=== PATIENT | male | born 1960 | race African-American/Black ===

== ENCOUNTER 2018-12-05 05:52 | Day surgery (SDC) | payer OTHER ==
[2018-11-28 09:05] LABS: ANION GAP 10 (5-19); BLOOD UREA NITROGEN 17 mg/dL (7-20); CALCIUM 9.2 mg/dL (8.4-10.2); CARBON DIOXIDE 29 mmol/L (22-30); CHLORIDE 104 mmol/L (98-107); GLUCOSE 207 mg/dL (75-110); POTASSIUM 4.5 mmol/L (3.6-5.0)
[2018-12-05] MEDS ORDERED: PROPOFOL INJ 200 MG/20 ML VIAL IV ONE (06:13)
[2018-12-05] MEDS ORDERED: MIDAZOLAM 2 MG/2 ML INJ ONE (06:13)
[2018-12-05] MEDS ORDERED: DIPHENHYDRAMINE HCL 50 MG/ML VIAL IV PRN (07:38)
[2018-12-05] MEDS ORDERED: ONDANSETRON HCL INJ/PF 4 MG/2 ML SDV IV PRN (07:38)
[2018-12-05] MEDS ORDERED: FENTANYL CITRATE INJ/PF 100 MCG/2 ML AMPUL IV PRN ×3 (07:38)
[2018-12-05] MEDS ORDERED: MORPHINE SULFATE 10 MG/ML INJ IV PRN (07:38)
[2018-12-05] MEDS ORDERED: MEPERIDINE HCL/PF INJ 25 MG/1 ML DISP.SYRIN IV PRN (07:38)
[2018-12-05] MEDS ORDERED: PROMETHAZINE HCL INJ 25 MG/1 ML VIAL IV PRN ×2 (07:38)
--- NOTE | 2018-12-05 08:59 | Discharge Summary ---
Discharge Summary (SDC) - Discharge Final Diagnosis: Normal screening colonoscopy, history of colon cancer Date of Surgery: 12/05/18 Discharge Date: 12/05/18 Condition: Stable Treatment or Instructions: Discharge home. Diet as tolerated. Activity: Nonstrenuous. Follow-up with me in 7 to 10 days. Fiber supplement twice daily. Referrals: OSCAR COLIN MD [Primary Care Provider] - Discharge Diet: As Tolerated Respiratory Treatments at Home: Deep Breathing/Coughing, Incentive Spirometer Discharge Activity: Activity As Tolerated Home Care Assistance: None Needed Report the Following to Your Physician Immediately: Shortness of Breath, Nausea, Vomiting, Increase in Pain, Fever over 101 Degrees, Unusual Bleeding, Swelling
--- NOTE | 2018-12-05 09:02 | Operative Report ---
Nonrecallable Operative Report DATE OF SURGERY: 12/05/18 PREOPERATIVE DIAGNOSIS: History of colon cancer POSTOPERATIVE DIAGNOSIS: 1. History of colon cancer. 2. Normal screening colonoscopy. OPERATION: Colonoscopy to the cecum. SURGEON: HAMMAD PAZ ANESTHESIA: LMAC TISSUE REMOVED OR ALTERED: None COMPLICATIONS: None apparent ESTIMATED BLOOD LOSS: None PROCEDURE: Procedure in detail: After informed consent was obtained, the patient was brought to the operating room and laid in the left lateral decubitus position. The endoscope was inserted into the rectum. It was passed up the rectum, sigmoid colon, descending colon, across the transverse colon, down the ascending colon, and into the cecum. The ileocecal valve and appendiceal orifice were identified. The scope was then withdrawn, circumferentially noting the mucosa. The prep was fair. There was a large amount of liquid stool retained in the co jaxon. This was irrigated and suctioned. The colonic mucosa was adequately surveyed after irrigation and suctioning. The scope was pulled back past the ascending colon, transverse colon, down the descending colon. At approximately 20 cm there was found to be a circumferential anastomosis present. The anastomosis was in good order, without signs of adenomatous tissue. The scope was then withdrawn down into the rectum. A retroflexion maneuver was performed noting no significant internal hemorrhoids. The scope was straightened, air was suctioned from the rectum, the scope was removed and the procedure was concluded. Please note there were no masses, lesions, polyps, tumors, ulcerations, or areas of bleeding throughout the colon. Once the scope was removed, the procedure was concluded. All sponge, instrument, and needle counts were correct. Condition: Stable. Recommendation: Repeat colonoscopy in 1 year due to history of recent colon cancer.
--- NOTE | 2018-12-05 10:47 | EKG REPORT ---
SEVERITY:- OTHERWISE NORMAL ECG - SINUS RHYTHM BORDERLINE LEFT AXIS DEVIATION : Confirmed by: Edie Neal MD 05-Dec-2018 10:47:08
[2018-12-05 12:22] VITALS: BP 119/71
== END 2018-12-05 09:50 | disposition home or self-care (01) ==
LOC: END 05:52
PROVIDERS: ATTEND Surgery
PROC: 0DJD8ZZ Inspection of Lower Intestinal Tract, Via Natural or Artificial Opening Endoscopic (ICD-10-PCS; principal; 2018-12-05 08:00)
DX: Z12.11 Encounter for screening for malignant neoplasm of colon (principal); Z85.038 Personal history of other malignant neoplasm of large intestine; E11.9 Type 2 diabetes mellitus without complications; I10 Essential (primary) hypertension; M19.90 Unspecified osteoarthritis, unspecified site; Z88.0 Allergy status to penicillin; Z79.4 Long term (current) use of insulin; Z79.899 Other long term (current) drug therapy
CPT/HCPCS: 45378; 36415 ×2; 82962; 84132; 80048; 93005; 93010; 00811; J2250; J2704; 811

== ENCOUNTER 2019-03-12 14:05 | Emergency (ER) | payer OTHER ==
--- NOTE | 2019-03-12 15:21 | ER Document Report ---
ED Medical Screen (RME) - General Chief Complaint: Dizziness Stated Complaint: DIZZINESS Time Seen by Provider: 03/12/19 14:50 Primary Care Provider: OSCAR COLIN MD [Primary Care Provider] - Follow up as needed Notes: 4-year-old male with hypertension and insulin pinna diabetes mellitus presents to the emergency department with chief complaint of vertigo and dizziness for the last 1.5 weeks. Patient states it started about a week and a half ago with vertigo with a sensation of the room spinning around him and that lasted for a couple of days and then subsided. Then this past Tuesday he was in his garage and got acutely dizzy and fell and struck his head on a refrigerator door. Patient states that his dizziness is gotten worse and his is concerned that ever since the fall and striking his head that his symptoms have gotten since progressively worse. Patient denies any diplopia but does complain of intermittent blurred vision, denies any palpitations, denies acute shortness of breath or chest pain, denies abdominal pain, patient is not on anticoagulation. Exam: NEURO: A &O X 3, normal speech, normal gait, PERRL, EOMI, SILT, follows commands in all 4 extremities, no gross abnormalities of cranial nerves, no focal neuro deficits, no pronator drift, [id number] testing normal, rapid alternating hand movements normal, [id number] normal, womens health nurse practitioner strength 5/5 bilateral, 5/5 strength in both proximal and distal upper and lower extremities I have greeted and performed a rapid initial assessment of this patient. A comprehensive ED assessment and evaluation of the patient, analysis of test results and completion of medical decision making process will be conducted by an additional ED providers. TRAVEL OUTSIDE OF THE [place] IN LAST 30 DAYS: No - Related Data Allergies/Adverse Reactions: Penicillins Adverse Reaction (Verified 11/28/18 08:34) Past Medical History - Social History Frequency of alcohol use: None Drug Abuse: None - Past Medical History Cardiac Medical History: Reports: Hx Hypertension Denies: Hx Coronary Artery Disease, Hx Heart Attack Pulmonary Medical History: Denies: Hx Asthma, Hx Bronchitis, Hx COPD, Hx Pneumonia Neurological Medical History: Denies: Hx Cerebrovascular Accident, Hx Seizures Musculoskeltal Medical History: Reports Hx Arthritis - ANGELO HIPS/KNEES - Immunizations Hx Diphtheria, Pertussis, Tetanus Vaccination: Yes Physical Exam - Vital signs Vitals: Temp Pulse Resp BP Pulse Ox 97.9 F 80 17 153/81 H 98 03/12/19 14:19 03/12/19 14:19 03/12/19 14:19 03/12/19 14:19 03/12/19 14:19 Course - Vital Signs Vital signs: Temp Pulse Resp BP Pulse Ox 97.9 F 80 17 153/81 H 98 03/12/19 14:19 03/12/19 14:19 03/12/19 14:19 03/12/19 14:19 03/12/19 14:19 Doctor's Discharge - Discharge Referrals: OSCAR COLIN MD [Primary Care Provider] - Follow up as needed
--- NOTE | 2019-03-12 16:04 | RADIOLOGY REPORT (SQ) ---
EXAM DESCRIPTION: CT HEAD WITHOUT COMPLETED DATE/TIME: 03/12/2019 3:52 pm REASON FOR STUDY: fall COMPARISON: None. TECHNIQUE: Axial images acquired through the brain without intravenous contrast. Images reviewed wi th bone, brain and subdural windows. Additional sagittal and coronal reconstructions were generated. Images stored on PACS. All CT scanners at this facility use dose modulation, iterative reconstruction, and/or weight based d osing when appropriate to reduce radiation dose to as low as reasonably achievable (ALARA). [facility]: Dose Right [facility]: CareDose [facility]: Dose Right [facility]: Teradose 4D [facility]: Kloudco RADIATION DOSE: CT Rad equipment meets quality standard of care and radiation dose reduction techniq ues were employed. CTDIvol: 53.2 mGy. DLP: 1017 mGy-cm. mGy. LIMITATIONS: None. FINDINGS: VENTRICLES: Normal size and contour. CEREBRUM: No masses. No hemorrhage. No midline shift. No evidence for acute infarction. Normal gra y/white matter differentiation. No areas of low density in the white matter. CEREBELLUM: No masses. No hemorrhage. No alteration of density. No evidence for acute infarction. EXTRAAXIAL SPACES: No fluid collections. No masses. ORBITS AND GLOBE: No intra- or extraconal masses. Normal contour of globe without masses. CALVARIUM: No fracture. PARANASAL SINUSES: No fluid or mucosal thickening. SOFT TISSUES: No mass or hematoma. OTHER: No other significant finding. IMPRESSION: No acute intracranial pathology. EVIDENCE OF ACUTE STROKE: NO. COMMENT: Quality ID # [id number]: Final reports with documentation of one or more dose reduction techniques (e.g., Automated exposure control, adjustment of the mA and/or kV according to patient size, use of iterative reconstruction technique) TECHNICAL DOCUMENTATION: JOB ID: [id number] [employer]- All Rights Reserved Reading location - IP/workstation name: [id number]
[2019-03-12 16:17] LABS: ABSOLUTE EOSINOPHILS # (AUTO) 0.1 10^3/uL (0.0-0.6); ABSOLUTE LYMPHOCYTES (AUTO) 1.6 10^3/uL (0.5-4.7); ABSOLUTE MONOCYTES (AUTO) 0.5 10^3/uL (0.1-1.4); BASOPHILS % (AUTO) 0.1 % (0-2); EOSINOPHILS % (AUTO) 2.8 % (0-6); HEMOGLOBIN 12.8 g/dL (13.5-17.0); LYMPHOCYTES % (AUTO) 38.8 % (13-45); MEAN CORPUSCULAR HEMOGLOBIN 22.8 pg (27.0-33.4); MEAN CORPUSCULAR HGB CONC 32.1 g/dL (32.0-36.0); MEAN CORPUSCULAR VOLUME 71 fl (80-97); PLATELET COUNT 237 10^3/uL (150-450); RED BLOOD COUNT 5.62 10^6/uL (4.35-5.55); RED CELL DISTRIBUTION WIDTH 14.5 % (11.5-14.0); SEGMENTED NEUTROPHILS % (AUTO) 47.3 % (42-78); TOTAL CELLS COUNTED % (AUTO) 100 %; WHITE BLOOD COUNT 4.2 10^3/uL (4.0-10.5)
[2019-03-12 16:20] LABS: APPEARANCE,URINE SLIGHTLY-CLOUDY; BILIRUBIN,URINE NEGATIVE (NEGATIVE); COLOR,URINE YELLOW; GLUCOSE, URINE >=500 mg/dL (NEGATIVE); KETONES,URINE TRACE mg/dL (NEGATIVE); LEUKOCYTE ESTERASE,URINE NEGATIVE (NEGATIVE); NITRITE,URINE NEGATIVE (NEGATIVE); PROTEIN,URINE 30 mg/dL (NEGATIVE); URINE SPECIFIC GRAVITY 1.027
[2019-03-12 16:31] LABS: ALBUMIN 4.5 g/dL (3.5-5.0); ALKALINE PHOSPHATASE 181 U/L (38-126); ANION GAP 9 (5-19); ASPARTATE AMINO TRANSFERASE 53 U/L (17-59); BILIRUBIN,DIRECT 0.1 mg/dL (0.0-0.4); BILIRUBIN,TOTAL 0.5 mg/dL (0.2-1.3); BLOOD UREA NITROGEN 18 mg/dL (7-20); CALCIUM 9.5 mg/dL (8.4-10.2); CARBON DIOXIDE 30 mmol/L (22-30); CHLORIDE 100 mmol/L (98-107); GLUCOSE 223 mg/dL (75-110); POTASSIUM 4.9 mmol/L (3.6-5.0); TOTAL PROTEIN 8.2 g/dL (6.3-8.2)
--- NOTE | 2019-03-12 17:08 | ER Document Report ---
ED General - General Chief Complaint: Dizziness Stated Complaint: DIZZINESS Time Seen by Provider: 03/12/19 14:50 Primary Care Provider: OSCAR COLIN MD [Primary Care Provider] - Follow up as needed TRAVEL OUTSIDE OF THE [place] IN LAST 30 DAYS: No - HPI Notes: Patient is a 58-year-old male who presents to the emergency department for evaluation of dizziness and difficulty walking. He states that last week he noted the room spinning, particularly when he laid down flat. He states it was so bad that he actually slept propped up on several pillows. The symptoms seem to improve. He states the next day he fell, striking the top of his head on a refrigerator. He denies loss of consciousness. He is unsure as to why he fell exactly, but does not relate any chest pain or difficulty breathing that precipitated it. He states that over the last 24 hours, he has developed significant difficulty walking. He does have known "balance issues." After an extensive work-up at [facility], it was noted to him that it was likely all secondary to his neuropathy. The patient states normally he can walk for some time without requiring any sort of assistance. He states now he needs to lean on something to keep him from falling to the ground. He denies any pain of any so rt. No visual changes. No other medication changes or acute issues. - Related Data Allergies/Adverse Reactions: Penicillins Adverse Reaction (Verified 11/28/18 08:34) Home Medications: Lantus, NovoLog, Mobic, Crestor, Voltaren gel Past Medical History - General Information source: Patient, Relative - Social History Smoking Status: Never Smoker Frequency of alcohol use: None Drug Abuse: None Family History: Reviewed & Not Pertinent Patient has suicidal ideation: No Patient has homicidal ideation: No - Past Medical History Cardiac Medical History: Reports: Hx Hypercholesterolemia, Hx Hypertension Denies: Hx Coronary Artery Disease, Hx Heart Attack Pulmonary Medical History: Denies: Hx Asthma, Hx Bronchitis, Hx COPD, Hx Pneumonia Neurological Medical History: Denies: Hx Cerebrovascular Accident, Hx Seizures Endocrine Medical History: Reports: Hx Diabetes Mellitus Type 2 - With neuropathy Musculoskeletal Medical History: Reports Hx Arthritis - ANGELO HIPS/KNEES - Immunizations Hx Diphtheria, Pertussis, Tetanus Vaccination: Yes Review of Systems - Review of Systems Constitutional: No symptoms reported EENT: See HPI Cardiovascular: No symptoms reported Respiratory: No symptoms reported Gastrointestinal: No symptoms reported Genitourinary: No symptoms reported Musculoskeletal: No symptoms reported Skin: No symptoms reported Neurological/Psychological: No symptoms reported Physical Exam - Vital signs Vitals: Temp Pulse Resp BP Pulse Ox 97.9 F 80 17 153/81 H 98 03/12/19 14:19 03/12/19 14:19 03/12/19 14:19 03/12/19 14:19 03/12/19 14:19 - Notes Notes: Vital signs reviewed, please refer to chart. Head is normocephalic, atraumatic. Pupils equal round, reactive to light. Right TM is pearly lr with good light reflex. Left TM is obscured by cerumen. Neck is supple without meningismus. Heart is regular rate and rhythm. Lungs are clear to auscultation bilaterally. Abdomen is soft, nontender, normoactive bowel sounds throughout. Extremities without cyanosis, clubbing. Posterior calves are nontender. Peripheral pulses are equal. Skin is warm and dry. Patient is awake, alert, oriented x3. Cranial nerves II - XII are grossly intact without focal neurological deficits. Strength is plus 4 out of 5 bilateral upper and lower extremities. Sensation is intact. Reflexes symmetrical. Intact zgcxdj-lazq-[id number] and rapid alternating movements. Patient had some difficulty and dysmetria with qncg-[id number]. Gait is observed and found to be broad-based and unsteady. Course - Re-evaluation Re-evalutation: 03/12/19 17:09 Patient presents emergency department for evaluation. His vertigo was improved, but he is very unsteady. Certainly this could be his neuropathy, but according to and the patient there is a significant worsening. Some of his symptoms are positional, so orthostatics were ordered. We will get an order an MRI, a CT scan of the head was unremarkable. We will continue to monitor. 03/12/19 19:45 Patient has high stents, he does not have any of the paperwork regarding this. MRI could not proceed without paperwork in regards to the current position of the stents. The patient states that this point he would like to leave AGAINST MEDICAL ADVICE. He voiced understanding to the fact that I do not have a clear etiology for his significant ataxia and vertigo. I am concerned of a central etiology for these symptoms. He voiced understanding, but still wishes to leave AGAINST MEDICAL ADVICE. He understands that he can return at any time should he change his mind. - Vital Signs Vital signs: Temp Pulse Resp BP Pulse Ox 97.9 F 70 17 148/79 H 98 03/12/19 14:19 03/12/19 18:50 03/12/19 14:19 03/12/19 18:50 03/12/19 14:19 - Laboratory Result Diagrams: 03/12/19 15:27 03/12/19 15:27 Laboratory results interpreted by me: 03/12/19 03/12/19 03/12/19 15:27 15:27 15:30 RBC 5.62 H Hgb 12.8 L MCV 71 L MCH 22.8 L RDW 14.5 H Glucose 223 H Alkaline Phosphatase 181 H Urine Protein 30 H Urine Glucose (UA) >=500 H Urine Ketones TRACE H Urine Urobilinogen 4.0 H Urine Ascorbic Acid 20 H - Diagnostic Test Radiology reviewed: Reports reviewed Radiology results interpreted by me: 03/12/19 17:[address] 03/12/19 15:21 IMPRESSION: No acute intracranial pathology. EVIDENCE OF ACUTE STROKE: NO. - EKG Interpretation by Me Additional EKG results interpreted by me: 03/12/19 19:46 Sinus mechanism with a rate of 71 bpm. Left axis deviation. Nonspecific ST changes, but no acute changes concerning for ischemia or infarction Discharge - Discharge Clinical Impression: Ataxia, Vertigo Condition: Stable Disposition: HOME, SELF-CARE Instructions: Vertigo (OM) Additional Instructions: No clear cause was found for your dizziness and gait difficulties tonight. You have elected to leave AGAINST MEDICAL ADVICE. Please understand you can return at any time if you change your mind regarding further evaluation. Follow-up as closely as possible with your primary care provider. Return to the ED with worsening or new concerning symptoms of any sort. Referrals: OSCAR COLIN MD [Primary Care Provider] - Follow up as needed
[2019-03-12 20:03] VITALS: BP 150/84
== END 2019-03-12 20:08 | disposition home or self-care (01) ==
LOC: ER 14:05
DX: R42 Dizziness and giddiness (principal); W22.8XXA Striking against or struck by other objects, initial encounter; E11.40 Type 2 diabetes mellitus with diabetic neuropathy, unspecified; Z79.4 Long term (current) use of insulin; I10 Essential (primary) hypertension
CPT/HCPCS: 36415; 70450; 80053; 81001; 83735; 84484; 85025; 99284

== ENCOUNTER 2019-11-20 22:17 | Emergency (ER) | payer OTHER ==
[2019-11-20 22:49] LABS: ABSOLUTE EOSINOPHILS # (AUTO) 0.1 10^3/uL (0.0-0.6); ABSOLUTE LYMPHOCYTES (AUTO) 2.8 10^3/uL (0.5-4.7); ABSOLUTE MONOCYTES (AUTO) 0.5 10^3/uL (0.1-1.4); ABSOLUTE NEUT (AUTO) 1.4 10^3/uL (1.7-8.2); EOSINOPHILS % (AUTO) 2.5 % (0-6); HEMATOCRIT 39.4 % (37.9-51.0); HEMOGLOBIN 12.7 g/dL (13.5-17.0); LYMPHOCYTES % (AUTO) 59.1 % (13-45); MEAN CORPUSCULAR HEMOGLOBIN 22.8 pg (27.0-33.4); MEAN CORPUSCULAR HGB CONC 32.3 g/dL (32.0-36.0); MEAN CORPUSCULAR VOLUME 71 fl (80-97); MONOCYTES % (AUTO) 9.9 % (3-13); PLATELET COUNT 235 10^3/uL (150-450); RED BLOOD COUNT 5.58 10^6/uL (4.35-5.55); RED CELL DISTRIBUTION WIDTH 14.7 % (11.5-14.0); SEGMENTED NEUTROPHILS % (AUTO) 28.5 % (42-78); TOTAL CELLS COUNTED % (AUTO) 100 %; WHITE BLOOD COUNT 4.8 10^3/uL (4.0-10.5)
[2019-11-20 23:10] LABS: ALBUMIN 4.3 g/dL (3.5-5.0); ALKALINE PHOSPHATASE 152 U/L (38-126); ANION GAP 10 (5-19); ASPARTATE AMINO TRANSFERASE 41 U/L (17-59); BILIRUBIN,TOTAL 0.4 mg/dL (0.2-1.3); BLOOD UREA NITROGEN 14 mg/dL (7-20); CALCIUM 9.4 mg/dL (8.4-10.2); CARBON DIOXIDE 27 mmol/L (22-30); CHLORIDE 100 mmol/L (98-107); GLUCOSE 153 mg/dL (75-110); POTASSIUM 4.3 mmol/L (3.6-5.0)
--- NOTE | 2019-11-20 23:12 | ER Document Report ---
ED General - General Chief Complaint: General Weakness Stated Complaint: WEAKNESS Time Seen by Provider: 11/20/19 22:57 Primary Care Provider: OSCAR COLIN MD [Primary Care Provider] - Follow up tomorrow Notes: Patient is a 59-year-old male that comes to the emergency department for chief complaint of an episode prior to arrival blood he felt "strange and weak", he states that he felt like his blood sugar was dropping, he checked and it was 84, he states that he started feeling his heart was starting to race as well. He states that suddenly when he stood up he had trouble moving his right leg although he denies tingling or numbness in the leg. He states this did resolve within an hour (the strange sensation and palpitations resolved, the right leg weakness resolved). Symptoms started about 2 hours prior to arrival. He comes by EMS. He denies headache, chest pain, abdominal pain. He does state that for the past 1.5 weeks he has had frequent vomiting and bad reflux, he states he was just [facility] and [facility] for this. He also has a history of hypertension and type 1 insulin-dependent diabetes. He states he has also been unsteady on his feet at baseline for the past couple of months although this is not definitely certain why. He denies smoking, alcohol, recreational drugs. He lives at home with his . TRAVEL OUTSIDE OF THE [place] IN LAST 30 DAYS: No - Related Data Allergies/Adverse Reactions: Penicillins Adverse Reaction (Verified 11/20/19 22:34) Home Medications: Reglan, HCTZ, Losartan, Vit D3 Past Medical History - General Information source: Patient - Social History Smoking Status: Never Smoker Frequency of alcohol use: None Lives with: Family Family History: Reviewed & Not Pertinent Patient has homicidal ideation: No - Past Medical History Cardiac Medical History: Reports: Hx Hypercholesterolemia, Hx Hypertension Denies: Hx Coronary Artery Disease, Hx Heart Attack Pulmonary Medical History: Denies: Hx Asthma, Hx Bronchitis, Hx COPD, Hx Pneumonia Neurological Medical History: Denies: Hx Cerebrovascular Accident, Hx Seizures Endocrine Medical History: Reports: Hx Diabetes Mellitus Type 2 - With neuropathy Musculoskeletal Medical History: Reports Hx Arthritis - ANGELO HIPS/KNEES - Immunizations Hx Diphtheria, Pertussis, Tetanus Vaccination: Yes Review of Systems - Review of Systems Constitutional: See HPI EENT: No symptoms reported Cardiovascular: See HPI Respiratory: No symptoms reported Gastrointestinal: No symptoms reported Genitourinary: No symptoms reported Male Genitourinary: No symptoms reported Musculoskeletal: No symptoms reported Skin: No symptoms reported Hematologic/Lymphatic: No symptoms reported Neurological/Psychological: See HPI Physical Exam - Vital signs Vitals: Pulse Ox 98 11/20/19 22:27 - Notes Notes: GENERAL: Alert, interacts well. No acute distress. Talkative and well-appearing HEAD: Normocephalic, atraumatic. EYES: Pupils equal, round, and reactive to light. Extraocular movements intact. ENT: Oral mucosa moist, tongue midline. Oropharynx unremarkable. Airway patent. Nares patent, sinuses non-tender, ear canals unremarkable, TM's intact. NECK: Full range of motion. Supple. Trachea midline. No lymphadenopathy. LUNGS: Clear to auscultation bilaterally, no wheezes, rales, or rhonchi. No respiratory distress. Non-tender chest wall. HEART: Regular rate and rhythm. No murmur ABDOMEN: Soft, non-tender. Non-distended. Bowel sounds present in all 4 quadrants. GENITOURINARY: Deferred EXTREMITIES: Moves all 4 extremities spontaneously. No edema, normal radial and dorsalis pedis pulses bilaterally. No cyanosis. BACK: no cervical, thoracic, lumbar midline tenderness. No saddle anesthesia, normal distal neurovascular exam. Moves all extremities in full range of motion. NEUROLOGICAL: Alert and oriented x3. Normal speech. Slightly unsteady gait but no consistent or overt ataxia. Cranial nerves II through XII grossly intact. Strength 5/5 in all extremities. PSYCH: Normal affect, normal mood. SKIN: Warm, dry, normal turgor. No rashes or lesions noted. Course - Re-evaluation Re-evalutation: Patient has no neurological deficits on my exam except he does ambulate with a slightly unsteady gait. He reports this is baseline. The strange feeling, lightheadedness, and the weakness in the right leg have completely resolved. Patient has no current complaints. He is talkative and well-appearing. CBC, chemistry, troponin, chest x-ray, CT of the head, EKG with no acute concerning findings. I discussed with Dr. Dangelo. I am most concerned that patient may have had a TIA with his right leg weakness which then resolved. Patient denied any chest pain, not had any symptoms since, has no complaints on exam. I discussed with patient, recommended admission for work-up of suspected TIA. Patient declined. He states she is concerned about being admitted to the hospital during the pandemic, he states that he can see his primary care within 24 hours for work-up of TIA and he would prefer to do this outpatient. He states he will return if he has any returned or concerning symptoms. Discussed with Dr. Dangelo again. Patient asymptomatic, stable, well-appearing at time of discharge. - Vital Signs Vital signs: Temp Pulse Resp BP Pulse Ox 98.2 F 72 18 147/97 H 98 11/20/19 22:34 11/21/19 04:01 11/21/19 04:01 11/21/19 04:01 11/21/19 04:01 - Laboratory Result Diagrams: 11/20/19 22:01 11/20/19 22:01 Laboratory results interpreted by me: 11/20/19 11/20/19 11/20/19 22:01 22:01 23:36 RBC 5.58 H Hgb 12.7 L MCV 71 L MCH 22.8 L RDW 14.7 H Lymph % (Auto) 59.1 H Absolute Neuts (auto) 1.4 L Seg Neutrophils % 28.5 L Glucose 153 H Alkaline Phosphatase 152 H Lipase 18.7 L Urine Glucose (UA) 50 H - EKG Interpretation by Me Additional EKG results interpreted by me: EKG shows sinus rhythm rate of 79, borderline T wave in lead III but no T wave inversions or ST segment changes in consecutive leads. Left axis deviation. QTC of 445. Discharge - Discharge Clinical Impression: Weakness Condition: Stable Disposition: HOME, SELF-CARE Additional Instructions: Your work-up does not show any concerning findings today. However based on your brief loss of control of your right leg along with your dizziness I am concerned that you might have had a TIA (a mini-stroke). You have declined admission for work-up of this, however the plan is for you to call your primary provider and be seen within 2 days to complete the TIA work-up with your primary care. Please return for any concerning symptoms including headache, slurred speech, loss of control of one side of your body, chest pain, passing out, or any other concerning symptoms. Referrals: OSCAR COLIN MD [Primary Care Provider] - Follow up tomorrow
[2019-11-21] LABS: APPEARANCE,URINE CLEAR; BILIRUBIN,URINE NEGATIVE (NEGATIVE); COLOR,URINE STRAW; GLUCOSE, URINE 50 mg/dL (NEGATIVE); KETONES,URINE NEGATIVE (NEGATIVE); LEUKOCYTE ESTERASE,URINE NEGATIVE (NEGATIVE); NITRITE,URINE NEGATIVE (NEGATIVE); PROTEIN,URINE NEGATIVE (NEGATIVE); URINE SPECIFIC GRAVITY 1.006; UROBILINOGEN,URINE NEGATIVE mg/dL (<2.0)
--- NOTE | 2019-11-21 00:43 | RADIOLOGY REPORT (SQ) ---
INDICATION: dizziness, right leg weakness, unsteady. COMPARISON: March 12, 2019 CORRELATION: None TECHNIQUE: Noncontrast spiral axial CT images were obtained from the skull base to vertex. This exam was performed according to our departmental dose-optimization program, which includes automated exposure control, adjustment of the mA and/or kV according to patient size and/or use of iterative reconstruction techniques. FINDINGS: There is no evidence of acute intracranial hemorrhage, midline shift, mass effect or mass lesion. Larson-white differentiation is normal. There is no evidence of acute large territory infarct. Ventricles and extracerebral spaces are within normal limits, for age. The visualized paranasal sinuses are grossly clear. The orbits and eyeballs are unremarkable. The mastoid air cells are clear. Skull base and calvarium appear intact. IMPRESSION: No acute intracranial process is identified. The cause of the patient's neurologic symptoms is not identified on this examination.
--- NOTE | 2019-11-21 01:21 | RADIOLOGY REPORT (SQ) ---
EXAM DESCRIPTION: XR CHEST 1 VIEW COMPLETED DATE/TME: 11/20/2019 23:10 CLINICAL HISTORY: 59 years, Male, dizziness, right leg weakness, unsteady COMPARISON: None. NUMBER OF VIEWS: TECHNIQUE: LIMITATIONS: None. FINDINGS: No evidence of pulmonary infiltrate or pleural effusion. The heart and mediastinum are unremarkable. Pulmonary vascularity appears normal. IMPRESSION: No acute finding. copyright 2010 [employer]- All Rights Reserved
[2019-11-21 04:02] VITALS: BP 147/97
--- NOTE | 2019-11-21 23:30 | EKG REPORT ---
SEVERITY:- BORDERLINE ECG - SINUS RHYTHM BORDERLINE LEFT AXIS DEVIATION BORDERLINE T ABNORMALITIES, INFERIOR LEADS : Confirmed by: Meka Greene 21-Nov-2019 23:29:42
== END 2019-11-21 03:38 | disposition home or self-care (01) ==
LOC: ER 22:17
DX: R53.1 Weakness (principal); R26.81 Unsteadiness on feet; K21.9 Gastro-esophageal reflux disease without esophagitis; R11.10 Vomiting, unspecified; I10 Essential (primary) hypertension; E11.40 Type 2 diabetes mellitus with diabetic neuropathy, unspecified; Z79.899 Other long term (current) drug therapy
CPT/HCPCS: 36415; 70450; 71045; 80053; 81001; 83690; 84484; 85025; 93005; 93010; 99285

== ENCOUNTER 2020-06-22 22:03 | Emergency (ER) | payer OTHER ==
--- NOTE | 2020-06-22 22:56 | ER Document Report ---
ED Medical Screen (RME) - General Chief Complaint: Medical Complaint Stated Complaint: DIABETIC/TOOK TO MUCH INSULIN Time Seen by Provider: 06/22/20 22:47 Mode of Arrival: Wheelchair Information source: Patient Notes: 59-year-old male presented to ED for complaint of taking 40 units of regular insulin instead of 40 units of Lantus insulin at bedtime. He states since then he has drank a whole soda and ate peanut butter crackers a grape juice and a small piece of cake. He states his sugar is 134 at this time he is using his own meter. I have ordered an Accu-Chek as well as blood work and urine. He will be seen by another provider. Patient's blood pressure was 154/87, temp was 98.1, O2 sat was 99%, pulse was 94%, and respirations were 22. They are not in the system at this time they will need to be recorded by one of the nurses or techs. I have greeted and performed a rapid initial assessment of this patient. A comprehensive ED assessment and evaluation of the patient, analysis of test results and completion of medical decision making process will be conducted by an additional ED providers. TRAVEL OUTSIDE OF THE [place] IN LAST 30 DAYS: No - Related Data Allergies/Adverse Reactions: Penicillins Adverse Reaction (Verified 11/20/19 22:34) Past Medical History - Past Medical History Cardiac Medical History: Reports: Hx Hypercholesterolemia, Hx Hypertension Denies: Hx Coronary Artery Disease, Hx Heart Attack Pulmonary Medical History: Denies: Hx Asthma, Hx Bronchitis, Hx COPD, Hx Pneumonia Neurological Medical History: Denies: Hx Cerebrovascular Accident, Hx Seizures Endocrine Medical History: Reports: Hx Diabetes Mellitus Type 2 - With neuropathy Musculoskeltal Medical History: Reports Hx Arthritis - ANGELO HIPS/KNEES - Immunizations Hx Diphtheria, Pertussis, Tetanus Vaccination: Yes
[2020-06-23 00:49] LABS: ABSOLUTE EOSINOPHILS # (AUTO) 0.2 10^3/uL (0.0-0.6); ABSOLUTE LYMPHOCYTES (AUTO) 1.4 10^3/uL (0.5-4.7); ABSOLUTE MONOCYTES (AUTO) 0.3 10^3/uL (0.1-1.4); BASOPHILS % (AUTO) 0.1 % (0-2); EOSINOPHILS % (AUTO) 3.1 % (0-6); HEMATOCRIT 42.1 % (37.9-51.0); HEMOGLOBIN 13.6 g/dL (13.5-17.0); LYMPHOCYTES % (AUTO) 28.2 % (13-45); MEAN CORPUSCULAR HEMOGLOBIN 23.1 pg (27.0-33.4); MEAN CORPUSCULAR HGB CONC 32.3 g/dL (32.0-36.0); MEAN CORPUSCULAR VOLUME 72 fl (80-97); MONOCYTES % (AUTO) 6.6 % (3-13); PLATELET COUNT 221 10^3/uL (150-450); RED BLOOD COUNT 5.88 10^6/uL (4.35-5.55); RED CELL DISTRIBUTION WIDTH 13.9 % (11.5-14.0); TOTAL CELLS COUNTED % (AUTO) 100 %; WHITE BLOOD COUNT 4.9 10^3/uL (4.0-10.5)
[2020-06-23 00:51] LABS: ALBUMIN 4.5 g/dL (3.5-5.0); ALKALINE PHOSPHATASE 154 U/L (38-126); ANION GAP 11 (5-19); ASPARTATE AMINO TRANSFERASE 56 U/L (17-59); BILIRUBIN,DIRECT 0.2 mg/dL (0.0-0.4); BILIRUBIN,TOTAL 0.5 mg/dL (0.2-1.3); BLOOD UREA NITROGEN 23 mg/dL (7-20); CALCIUM 9.8 mg/dL (8.4-10.2); CARBON DIOXIDE 27 mmol/L (22-30); CHLORIDE 99 mmol/L (98-107); GLUCOSE 201 mg/dL (75-110); POTASSIUM 4.8 mmol/L (3.6-5.0); TOTAL PROTEIN 8.3 g/dL (6.3-8.2)
[2020-06-23 01:37] LABS: APPEARANCE,URINE CLEAR; BILIRUBIN,URINE NEGATIVE (NEGATIVE); COLOR,URINE STRAW; GLUCOSE, URINE NEGATIVE (NEGATIVE); KETONES,URINE NEGATIVE (NEGATIVE); LEUKOCYTE ESTERASE,URINE NEGATIVE (NEGATIVE); NITRITE,URINE NEGATIVE (NEGATIVE); PROTEIN,URINE NEGATIVE (NEGATIVE); URINE SPECIFIC GRAVITY 1.008; UROBILINOGEN,URINE NEGATIVE mg/dL (<2.0)
== END 2020-06-23 03:00 | disposition left against medical advice (07) ==
LOC: ER 22:03
DX: E11.9 Type 2 diabetes mellitus without complications (principal); Z79.4 Long term (current) use of insulin; E78.00 Pure hypercholesterolemia, unspecified; I10 Essential (primary) hypertension
CPT/HCPCS: 36415; 80053; 81001; 82962; 85025; 99281